=== PATIENT | female | born 1990 | race Caucasian/White ===

== ENCOUNTER 2017-08-12 11:59 | Emergency (ER) | payer MEDICAID, OTHER | END 2017-08-12 12:45 | disposition home or self-care (01) | LOC: NAV ERS 11:59 | DX: K03.81 Cracked tooth (principal); S00.512A Abrasion of oral cavity, initial encounter; K02.9 Dental caries, unspecified; J45.909 Unspecified asthma, uncomplicated; F17.210 Nicotine dependence, cigarettes, uncomplicated; X58.XXXA Exposure to other specified factors, initial encounter | CPT/HCPCS: 99283 ==

== ENCOUNTER 2017-08-13 20:41 | Emergency (ER) | payer MEDICAID, OTHER ==
[2017-08-13] MEDS ORDERED: Acetaminophen/Codeine 30-300mg Tablet ONE (21:22)
== END 2017-08-13 21:24 | disposition home or self-care (01) ==
LOC: NAV ERS 20:41
DX: K12.0 Recurrent oral aphthae (principal); D50.0 Iron deficiency anemia secondary to blood loss (chronic); J45.909 Unspecified asthma, uncomplicated; F17.210 Nicotine dependence, cigarettes, uncomplicated; Z79.899 Other long term (current) drug therapy
CPT/HCPCS: 99282

== ENCOUNTER 2017-10-18 19:33 | Emergency (ER) | payer OTHER ==
[2017-10-18] MEDS ORDERED: Acetaminophen/Codeine 30-300mg Tablet ONE (19:57)
[2017-10-18] MEDS ORDERED: Amoxicillin/Potassium Clav 875 MG TAB ONE (19:58)
== END 2017-10-18 20:02 | disposition home or self-care (01) ==
LOC: NAV ERS 19:33
DX: K12.2 Cellulitis and abscess of mouth (principal); K02.9 Dental caries, unspecified; D50.9 Iron deficiency anemia, unspecified; J45.909 Unspecified asthma, uncomplicated; F17.210 Nicotine dependence, cigarettes, uncomplicated
CPT/HCPCS: 41800

== ENCOUNTER 2017-11-10 01:41 | Emergency (ER) | payer OTHER | END 2017-11-10 02:00 | disposition home or self-care (01) | LOC: NAV ERS 01:41 | DX: R21 Rash and other nonspecific skin eruption (principal); D64.9 Anemia, unspecified; J45.909 Unspecified asthma, uncomplicated; F41.9 Anxiety disorder, unspecified; F17.210 Nicotine dependence, cigarettes, uncomplicated | CPT/HCPCS: 99282 ==

== ENCOUNTER 2018-10-22 23:57 | Emergency (ER) | payer OTHER ==
[2018-10-23] MEDS ORDERED: Amoxicillin/Potassium Clav 875 MG TAB ONE (00:14)
== END 2018-10-23 00:20 | disposition home or self-care (01) ==
LOC: NAV ERS 23:57
DX: K02.9 Dental caries, unspecified (principal); F41.9 Anxiety disorder, unspecified; F17.210 Nicotine dependence, cigarettes, uncomplicated
CPT/HCPCS: 99283

== ENCOUNTER 2019-02-14 20:38 | Emergency (ER) | payer OTHER ==
[2019-02-14] MEDS ORDERED: Cephalexin 250 MG CAP ONE (21:15)
[2019-02-14] MEDS ORDERED: Naproxen 500 MG TAB ONE (21:15)
== END 2019-02-14 21:20 | disposition home or self-care (01) ==
LOC: NAV ERS 20:38
DX: K04.7 Periapical abscess without sinus (principal); K02.9 Dental caries, unspecified; R22.0 Localized swelling, mass and lump, head; D50.9 Iron deficiency anemia, unspecified; J45.909 Unspecified asthma, uncomplicated; F17.210 Nicotine dependence, cigarettes, uncomplicated
CPT/HCPCS: 99283

== ENCOUNTER 2019-04-03 13:19 | Emergency (ER) | payer OTHER | END 2019-04-03 13:57 | disposition home or self-care (01) | LOC: NAV ERS 13:19 | DX: K03.81 Cracked tooth (principal); K02.9 Dental caries, unspecified; D50.9 Iron deficiency anemia, unspecified; J45.909 Unspecified asthma, uncomplicated; F17.210 Nicotine dependence, cigarettes, uncomplicated | CPT/HCPCS: 99282 ==

== ENCOUNTER 2019-11-14 17:38 | Emergency (ER) | payer OTHER, SELFPAY ==
[2019-11-14] MEDS ORDERED: cefTRIAXone\\ROCEPHIN 2 GM VIAL ONE (18:02)
[2019-11-14] MEDS ORDERED: cefTRIAXone\\ROCEPHIN 1 GM VIAL ONE (18:02)
[2019-11-14] MEDS ORDERED: Ketorolac Tromethamine 60 MG/2 ML VIAL ONE (18:02)
[2019-11-14] MEDS ORDERED: Lidocaine 1% (PF) 30 ML VIAL ONE (18:02)
== END 2019-11-14 18:25 | disposition home or self-care (01) ==
LOC: NAV ERS 17:38
DX: K02.9 Dental caries, unspecified (principal); K04.7 Periapical abscess without sinus; Z87.891 Personal history of nicotine dependence; D50.9 Iron deficiency anemia, unspecified
CPT/HCPCS: 96372; 99282; J0696; J1885; J2001

== ENCOUNTER 2021-02-23 13:40 | Emergency (ER) | payer SELFPAY | END 2021-02-23 14:12 | disposition home or self-care (01) | LOC: NAV ERS 13:40 | DX: K02.9 Dental caries, unspecified (principal); D50.9 Iron deficiency anemia, unspecified; J45.909 Unspecified asthma, uncomplicated; Z87.891 Personal history of nicotine dependence | CPT/HCPCS: 99282 ==